=== PATIENT | male | born 1955 | race African-American/Black ===

== ENCOUNTER 2016-06-18 15:38 | Emergency (ER) | payer SELFPAY ==
[~2016-06-18] VITALS: Ht 180.3 cm; Wt 68.0 kg
[2016-06-18 15:55] VITALS: BP 122/68
--- NOTE | 2016-06-18 16:14 | PHYS DOC ---
Past Medical History Past Medical History: No Pertinent History Past Surgical History: Other Additional Past Surgical Histo: R shoulder, R wrist for "tendonitis" Additional Information: cigar smoker Alcohol Use: Occasionally Drug Use: Marijuana Adult General Chief Complaint Chief Complaint: FLU SYMPTOM HPI HPI Patient is a 60 year old male who presents with a dry cough, subjective fevers , body aches and chills that began 4 days ago. Review of Systems Review of Systems Constitutional: fever Eyes: Denies change in visual acuity, redness, or eye pain [] HENT: Denies nasal congestion or sore throat [] Respiratory: cough Cardiovascular: No additional information not addressed in HPI [] GI: Denies abdominal pain, nausea, vomiting, bloody stools or diarrhea [] : Denies dysuria or hematuria [] Musculoskeletal: Denies back pain or joint pain [] Integument: Denies rash or skin lesions [] Neurologic: Denies headache, focal weakness or sensory changes [] Endocrine: Denies polyuria or polydipsia [] Current Medications Current Medications Current Medications Medications (Trade) Dose Ordered Sig/Denise Start Time Stop Time Status Last Admin Dose Admin Acetaminophen (Tylenol) 1,000 mg 1X ONCE 06/18/16 16:15 06/18/16 16:16 DC 06/18/16 16:33 1,000 MG Allergies Allergies Allergies Coded Allergies Type Severity Reaction Last Updated Verified No Known Drug Allergies 06/18/16 No Physical Exam Physical Exam Constitutional: Well developed, well nourished, no acute distress, non-toxic appearance. [] HENT: Normocephalic, atraumatic, bilateral external ears normal, oropharynx moist, no oral exudates, nose normal. [] Eyes: PERRLA, EOMI, conjunctiva normal, no discharge. [] Neck: Normal range of motion, no tenderness, supple, no stridor. [] Cardiovascular:Heart rate regular rhythm, no murmur [] Lungs & Thorax: Bilateral breath sounds clear to auscultation [] Abdomen: Bowel sounds normal, soft, no tenderness, no masses, no pulsatile masses. [] Skin: Warm, dry, no erythema, no rash. [] Back: No tenderness, no CVA tenderness. [] Extremities: No tenderness, no cyanosis, no clubbing, ROM intact, no edema. [] Neurologic: Alert and oriented X 3, normal motor function, normal sensory function, no focal deficits noted. [] Psychologic: Affect normal, judgement normal, mood normal. [] Current Patient Data Vital Signs Vital Signs Date Time Temp Pulse Resp B/P Pulse Ox O2 Delivery O2 Flow Rate FiO2 06/18/16 15:55 100.2 98 20 99 Room Air 100.2 Lab Values Laboratory Tests Test 06/18/16 16:01 Influenza Type A Antigen Negative (NEGATIVE) Influenza Type B Antigen Negative (NEGATIVE) EKG EKG [] Radiology/Procedures Radiology/Procedures [] Course & Med Decision Making Course & Med Decision Making Pertinent Labs and Imaging studies reviewed. (See chart for details) Patient is in the ED with flulike symptoms including fever or bodyaches chills and a cough. Temperature on arrival was 100.2. Patient was given Tylenol. Chest x-ray interpreted by radiologist as negative for any acute findings, negative for influenza A or B. Patient's symptoms are viral. Discharged with instructions to push fluids. Take Tylenol/ Motrin as needed for fever or pain. Follow-up with primary care doctor in 3 days. Dragon Disclaimer Dragon Disclaimer This electronic medical record was generated, in whole or in part, using a voice recognition dictation system. Departure Departure Impression: Primary Impression: Fever Additional Impressions: Cough Viral illness Disposition: HOME, SELF-CARE Condition: STABLE Patient Instructions: Cough, Adult, Upper Respiratory Infection, Adult Additional Instructions: You were seen with symptoms consistent with a viral illness. Your chest x-ray is negative for any acute findings. Your strep test is negative. Take Tylenol every 4 hours and Motrin every 6 hours as needed for pain or fever. Push fluids maintain good hand hygiene. Follow-up with your own doctor in the next 3 days. Come back to the ED at any point symptoms worsen. Problem Qualifiers Primary Impression: Fever Fever type: unspecified Qualified Code: R50.9 - Fever, unspecified YUSEF VILLAGRAN AARON Jun 18, 2016 16:14
[2016-06-18] MEDS ORDERED: ACETAMINOPHEN 500 MG TABLET PO ONE (16:15)
--- NOTE | 2016-06-18 16:38 | RAD ---
Indication flu. Cough. PA and lateral views of the chest were obtained. Comparison is made to an examination April 10, 2004. Heart, pulmonary vessels and mediastinum appear normal. The lungs are clear. There has not been a significant change compared to the previous exam. IMPRESSION: No acute or focal process. No significant change
[2016-06-18 16:59] LABS: OBC FLU VALID
[2016-06-19 07:50] LABS: NEGATIVE OBC STREP NEG; POSITIVE OBC STREP POS
== END 2016-06-18 17:05 | disposition home or self-care (01) ==
LOC: ER 15:38
DX: B34.9 Viral infection, unspecified (principal); R05 Cough; R50.9 Fever, unspecified; F17.210 Nicotine dependence, cigarettes, uncomplicated; F12.10 Cannabis abuse, uncomplicated
CPT/HCPCS: 71020; 87070; 87804; 87880; 99285-25